=== PATIENT | female | born 1955 | race Caucasian/White ===

== ENCOUNTER → 2016-10-13 16:39 | Outpatient (CLI) | payer MEDICARE ==
[2015-08-22 08:43] VITALS: BMI 35.8
[~2016-10-13 16:39] MED LIST: MOBIC7.5 MG PO; SYNTHROID75 MCG PO; TAMOXIFEN CITRA20 MG PO
== END | disposition home or self-care (01) ==
LOC: D.MAMMO 13:30
DX: Z85.3 Personal history of malignant neoplasm of breast (principal)

== ENCOUNTER → 2018-06-10 12:21 | Outpatient (CLI) | payer MEDICARE ==
[2015-08-22 08:43] VITALS: BMI 35.8
--- NOTE | ~2018-06-10 | HEMODYNAMI ---
PATIENT:SARANYA BEATTY MEDICAL RECORD: [id number] : 57 LOCATION:[facility] ADMISSION DATE: 06/10/18 Generatedon:06/10/201813:42 Patient name: SARANYA BEATTY Patient #: [id number] SSN: : 1955 Date of study: 06/10/2018 Page: Of Hemodynamic Procedure Report Patient Data Patient Demographics Procedure consent was obtained First Name: SARANYA Gender: Female Last Name: JACI : 1955 [facility] Initial: CORY Age: 63 year(s) Patient #: [id number] Race: Additional ID: [id number] Contact details Address: [address] [place] [address] State: [place] [facility] [place] code: [address] Past Medical History Allergies Allergen Reaction Date Comments Reported Other allergy 11/21/2014 penicillin Penicillins 06/10/2018 Admission Admission Data Admission Date: 06/10/2018 Admission Time: 12:21 Procedure Procedure Types Cath Procedure Peripheral Cath Diagnostic Procedure Miscellaneous Pleurex Procedure Description Procedure Date Procedure Date: 06/10/2018 Procedure Start Time: 13:33 Procedure Staff Name Function Mike Mantilla MD Performing Physician Lino Early RT Monitor Ivonne Vega RT Scrub Esther Lua RN Nurse Procedure Data Cath Procedure Fluoroscopy Diagnostic fluoroscopy Total fluoroscopy Time: 0.6 time: 0.6 min min Diagnostic fluoroscopy Total fluoroscopy dose: 7 dose: 7 mGy mGy Contrast Material Contrast Material Type Amount (ml) Isovue 300 5 Hemodynamics Rest Pre Cath Intra NCS Post Cath Procedure Log Time Note 13:18:27 Time tracking: Regular hours (M-F 7:00 - 5:00) 13:18:41 Signed procedure consent form obtained from patient. 13:19:15 Patient allergic to Penicillins 13:19:50 Is patient on blood thinner?No 13:19:57 - 13:20:24 Right hip area was prepped with betadine and draped in sterile fashion 13:29:57 Physician arrived 13:30:09 --------ALL STOP TIME OUT------ 13:30:10 Final Timeout: patient, procedure, and site verified with staff and physician. All members of the team are in agreement. 13:33:04 Procedure started. 13:33:04 Full Disclosure recording started 13:39:28 steroid injected into hip joint 13:40:12 Procedure ended.(Physican Out) 13:40:51 Fluoroscopy time 00.60 minutes. 13:40:54 Fluoroscopy dose: 7 mGy 13:40:54 Flurop Dose total: 7 13:41:02 Contrast amount:Isovue 300 5ml. 13:41:10 Procedure and supply charges have been captured, reviewed, submitted an d are correct. Signature Audit [place] Stage Time Signature Unsigned Intra-Procedure 06/10/2018 Ivonne Vega 1:42:38 PM RT(R) Signatures Monitor : Lino Signature : Sharath RT Date : Time : [facility] [address] [place] [address]
== END | disposition home or self-care (01) ==
LOC: D.RAD 08:00 → D.SP 12:21 → D.RAD 13:00 → D.SP 13:00
DX: M25.551 Pain in right hip (principal); Z01.812 Encounter for preprocedural laboratory examination

== ENCOUNTER → 2018-10-21 11:12 | Outpatient (CLI) | payer MEDICARE ==
[2015-08-22 08:43] VITALS: BMI 35.8
--- NOTE | ~2018-10-21 | HEMODYNAMI ---
PATIENT:SARANYA BEATTY MEDICAL RECORD: [id number] : 57 LOCATION:[facility] ADMISSION DATE: 10/21/18 Generatedon:10/21/201812:40 Patient name: SARANYA BEATTY Patient #: [id number] SSN: : 1955 Date of study: 10/21/2018 Page: Of Hemodynamic Procedure Report Patient Data Patient Demographics Procedure consent was obtained First Name: SARANYA Gender: Female Last Name: JACI : 1955 [facility] Initial: CORY Age: 63 year(s) Patient #: [id number] Race: Additional ID: [id number] Contact details Address: [address] [place] [address] State: [place] City: [facility] Zip code: [address] Past Medical History Allergies Allergen Reaction Date Comments Reported Other allergy 11/21/2014 penicillin Penicillins 06/10/2018 Penicillins 10/21/2018 Admission Admission Data Admission Date: 10/21/2018 Admission Time: 11:12 Procedure Procedure Types Cath Procedure Peripheral Cath Diagnostic Procedure Miscellaneous Aspiration/Injection (Joint) Procedure Description Procedure Date Procedure Date: 10/21/2018 Procedure Start Time: 12:17 Procedure Staff Name Function Lino LUU Monitor Sadi Wilkins MD Performing Physician Joy Gonzalez RN Nurse Olimpia Holt RN Nurse Procedure Data Cath Procedure Fluoroscopy Diagnostic fluoroscopy Total fluoroscopy Time: 0.7 time: 0.7 min min Diagnostic fluoroscopy Total fluoroscopy dose: 38 dose: 38 mGy mGy Hemodynamics Rest Pre Cath Intra NCS Post Cath Procedure Log Time Note 11:54:50 Lino Early RT (R) (CV) sent for patient. Start room use. 11:54:52 Time tracking: Regular hours (M-F 7:00 - 5:00) 11:55:11 Correct patient and procedure confirmed by team. 12:00:34 Signed procedure consent form obtained from patient. 12:00:36 - 12:00:39 Pre-procedure instructions explained to patient. 12:00:40 Pre-op teaching completed and patient verbalized understanding. 12:01:09 Patient allergic to Penicillins 12:01:52 Is patient on blood thinner?No 12:01:57 - 12:10:56 Physician arrived 12:11:23 --------ALL STOP TIME OUT------ 12:12:02 Final Timeout: patient, procedure, and site verified with staff and physician. All members of the team are in agreement. 12:12:10 Right hip site verified by team. 12:12:21 SAFE-T PLUS MYELOGRAM TRAY opened to sterile field. 12:14:00 Right hip area was prepped with betadine and draped in sterile fashion 12:14:57 Full Disclosure recording started 12:14:57 Procedure started. 12:17:35 Local anesthetic to Right Hip with Lidocaine 1% by Sadi Wilkins MD.INITIAL ACCESS ONLY 12:21:12 Procedure ended.(Physican Out) 12:21:29 Fluoroscopy time 00.70 minutes. 12:21:37 Fluoroscopy dose: 38 mGy 12:21:37 Flurop Dose total: 38 12:23:20 Post-op/insertion site Right Hip dressed using a Bandaid. 12:24:00 End room use (Document Last) 12:24:45 Full Disclosure recording stopped Device Usage Item Name Manufacture Quantity Catalog Hospital Part Current Minimal Lot# / Number Charge Number Stock Stock Serial# Code SAFE-T [employer] 1 [id number] PLUS MYELOGRAM TRAY Signature Audit [place] Stage Time Signature Unsigned Intra-Procedure 10/21/2018 Lino 12:40:50 PM [place] RT (R) (CV) Signatures Monitor : Lino Signature : Sharath RT Date : Time : [facility] [address] [place] [address]
== END | disposition home or self-care (01) ==
LOC: D.RAD 09-30 13:00
PROVIDERS: ATTEND Nurse Practitioner Family
DX: M13.851 Other specified arthritis, right hip (principal)

== ENCOUNTER 2018-11-25 15:00 | Outpatient (CLI) | payer MEDICARE ==
[2015-08-22 08:43] VITALS: BMI 35.8
== END 2018-11-25 15:30 | disposition home or self-care (01) ==
LOC: D.MAMMO 15:00
PROVIDERS: ATTEND Family Medicine Adult Medicine
DX: Z85.3 Personal history of malignant neoplasm of breast (principal)

== ENCOUNTER → 2019-04-28 10:12 | Outpatient (CLI) | payer MEDICARE ==
[2015-08-22 08:43] VITALS: BMI 35.8
--- NOTE | ~2019-04-28 | HEMODYNAMI ---
PATIENT:SARANYA BEATTY MEDICAL RECORD: [id number] : 57 LOCATION:[facility] ADMISSION DATE: 04/28/19 Generatedon:04/28/201911:07 Patient name: SARANYA BEATTY Patient #: [id number] SSN: : 1955 Date of study: 04/28/2019 Page: Of Hemodynamic Procedure Report Patient Data Patient Demographics Procedure consent was obtained First Name: SARANYA Gender: Female Last Name: JACI : 1955 [facility] Initial: CORY Age: 64 year(s) Patient #: [id number] Race: Additional ID: [id number] Contact details Address: [address] [place] [address] State: [place] City: [facility] Zip code: [address] Past Medical History Allergies Allergen Reaction Date Comments Reported Other allergy 11/21/2014 penicillin Penicillins 06/10/2018 Penicillins 10/21/2018 Penicillins 04/28/2019 Admission Admission Data Admission Date: 04/28/2019 Admission Time: 10:12 Procedure Procedure Types Cath Procedure Peripheral Cath Diagnostic Procedure Sheet Metal Pattern Cutter Peripheral Procedures Miscellaneous Aspiration/Injection (Joint) Procedure Description Procedure Date Procedure Date: 04/28/2019 Procedure Start Time: 10:52 Procedure Staff Name Function Manjeet Mcmillan MD Performing Physician Ivonne Vega RT Counter Hop Procedure Data Cath Procedure Fluoroscopy Diagnostic fluoroscopy Total fluoroscopy Time: 0.3 time: 0.3 min min Diagnostic fluoroscopy Total fluoroscopy dose: 3 dose: 3 mGy mGy Hemodynamics Rest Pre Cath Intra NCS Post Cath Procedure Log Time Note 10:31:50 Time tracking: Regular hours (M-F 7:00 - 5:00) 10:37:42 Signed procedure consent form obtained from patient. 10:37:46 Pre-procedure instructions explained to patient. 10:37:47 Pre-op teaching completed and patient verbalized understanding. 10:37:55 Patient allergic to Penicillins 10:38:12 Right Hip was prepped with betadine and draped in sterile fashion. 10:46:39 - 10:51:11 Physician arrived 10:51:14 --------ALL STOP TIME OUT------ 10:51:16 Final Timeout: patient, procedure, and site verified with staff and physician. All members of the team are in agreement. 10:52:04 Procedure started. 10:52:04 Full Disclosure recording started 10:52:13 Local anesthetic to Right Hip with Lidocaine 1% by Manjeet Mcmillan MD.INITIAL ACCESS ONLY 11:05:54 rt hip injected with steroid 11:05:58 Procedure ended.(Physican Out) 11:06:22 Fluoroscopy time 00.30 minutes. 11:06:27 Fluoroscopy dose: 3 mGy 11:06:27 Flurop Dose total: 3 11:07:16 Procedure and supply charges have been captured, reviewed, submitted an d are correct. Signature Audit [place] Stage Time Signature Unsigned Intra-Procedure 04/28/2019 Ivonne Vega 11:07:34 AM RT(R) [facility] [address] [place] [address]
== END | disposition home or self-care (01) ==
LOC: D.RAD 10:12
PROVIDERS: ATTEND Nurse Practitioner Family
DX: M16.11 Unilateral primary osteoarthritis, right hip (principal)

== ENCOUNTER → 2019-06-24 11:05 | Outpatient (CLI) | payer MEDICARE ==
[2015-08-22 08:43] VITALS: BMI 35.8
== END | disposition home or self-care (01) ==
LOC: D.MRI 06-21 13:30
PROVIDERS: ATTEND Nurse Practitioner Family
DX: M47.22 Other spondylosis with radiculopathy, cervical region (principal)